=== PATIENT | female | born 1955 | race African-American/Black ===

== ENCOUNTER 2016-10-18 07:51 | Emergency (ER) | payer MEDICAID ==
[~2016-10-18] VITALS: Ht 165.1 cm; Wt 90.0 kg
[~2016-10-18 07:51] MED LIST: AMLO10TA80 PO; CALC-50 PO; DIPH50CA47 PO; FLUO-124 PO; IBUP-1510 PO; OMEP20CA10 PO; TRAZ-132 PO; TRIA1CAP2 PO; ZIPR80CA2 PO
[2016-10-18] MEDS ORDERED: IBUPROFEN 400MG TABLET PO ONE (08:15)
[2016-10-18 10:00] VITALS: BP 142/76
== END 2016-10-18 11:20 | disposition home or self-care (01) ==
LOC: ER 08:04
DX: M25.561 Pain in right knee (principal); M25.562 Pain in left knee; E05.90 Thyrotoxicosis, unspecified without thyrotoxic crisis or storm; J44.9 Chronic obstructive pulmonary disease, unspecified; I10 Essential (primary) hypertension; F03.90 Unspecified dementia, unspecified severity, without behavioral disturbance, psychotic disturbance, mood disturbance, and anxiety; E11.9 Type 2 diabetes mellitus without complications; Z88.0 Allergy status to penicillin; Z90.49 Acquired absence of other specified parts of digestive tract; Z90.710 Acquired absence of both cervix and uterus
CPT/HCPCS: 99283

== ENCOUNTER 2020-11-08 20:33 | Emergency (ER) | payer MEDICAID ==
[~2020-11-08] VITALS: Ht 157.5 cm; Wt 100.0 kg
[~2020-11-08 20:33] MED LIST changes: -FLUO-124 PO; +FLUO20CA39 PO; -IBUP-1510 PO; +IBUP-2030 PO; -OMEP20CA10 PO; +OMEP20CA14 PO; -TRAZ-132 PO; +TRAZ-252 PO
[2020-11-08] MEDS ORDERED: IPRATROPIUM BROMIDE (0.02%) 0.5MG/2.5ML NEB HHN STA (20:49)
[2020-11-08] MEDS ORDERED: ALBUTEROL (0.083%) 2.5MG/3ML NEB HHN STA (20:49)
[2020-11-08] MEDS ORDERED: METHYLPREDNISOLONE SOD SUCC 125 MG/2 ML VIAL IV STA (20:49)
[2020-11-08 21:32] LABS: BASOPHILS % 1.1 % (0.0-2.0); EOSINOPHILS % 1.5 % (0.0-5.0); HEMATOCRIT. 39.6 % (36.0-48.0); HEMOGLOBIN. 13.7 g/dL (12.0-16.0); MEAN CORPUSCULAR HEMOGLOBIN 32.6 pg (28.0-32.0); MONOCYTES % 8.2 % (2.0-8.0); NEUTROPHILS % 58.2 % (40.0-76.0); RED BLOOD CELL COUNT 4.22 mill/uL (4.2-5.4); RED CELL DISTRIBUTION WIDTH 14.4 % (11.6-14.6)
[2020-11-08 21:37] LABS: CHLORIDE 106 mEq/L (98-107)
[2020-11-08 21:56] LABS: MEAN PLATELET VOLUME 9.3 fl (7.4-10.4); PLATELET 239 x1000/uL (130-400)
[2020-11-08] MEDS ORDERED: ZIPRASIDONE HCL 80MG CAPSULE PO ONE (22:00)
[2020-11-08] MEDS ORDERED: ZIPRASIDONE HCL 40MG CAPSULE PO NR (22:15)
[2020-11-08 23:40] VITALS: BP 147/84
== END 2020-11-08 23:53 | disposition home or self-care (01) ==
LOC: ER 20:33
DX: R06.02 Shortness of breath (principal); F41.9 Anxiety disorder, unspecified; R60.0 Localized edema; I10 Essential (primary) hypertension; J44.9 Chronic obstructive pulmonary disease, unspecified; E11.9 Type 2 diabetes mellitus without complications; E03.9 Hypothyroidism, unspecified; Z99.81 Dependence on supplemental oxygen; F17.210 Nicotine dependence, cigarettes, uncomplicated
CPT/HCPCS: 36415; 71045; 80053; 83880; 84484; 85025; 93971; 94640; 96374; 99285; J2930; Z7610

== ENCOUNTER 2021-02-04 09:10 | Emergency (ER) | payer MEDICAID ==
[~2021-02-04] VITALS: Ht 172.7 cm; Wt 82.0 kg
[2021-02-04] MEDS ORDERED: PREDNISONE 20MG TABLET PO STA (09:28)
[2021-02-04] MEDS ORDERED: ALBUTEROL (0.083%) 2.5MG/3ML NEB HHN STA (09:28)
[2021-02-04] MEDS ORDERED: IPRATROPIUM BROMIDE (0.02%) 0.5MG/2.5ML NEB HHN STA (09:28)
[2021-02-04 10:58] LABS: HEMATOCRIT. 39.2 % (36.0-48.0); HEMOGLOBIN. 13.4 g/dL (12.0-16.0); MEAN CORPUSCULAR HEMOGLOBIN 31.3 pg (28.0-32.0); MEAN CORPUSCULAR VOLUME 91.8 fL (81.0-99.0); MEAN PLATELET VOLUME 7.9 fl (7.4-10.4); PLATELET 290 x1000/uL (130-400); RED BLOOD CELL COUNT 4.28 mill/uL (4.2-5.4); RED CELL DISTRIBUTION WIDTH 14.9 % (11.6-14.6)
[2021-02-04 11:01] LABS: CHLORIDE 109 mEq/L (98-107)
[2021-02-04] MEDS ORDERED: P50 MT (11:22)
[2021-02-04 11:30] VITALS: BP 141/74
[2021-02-04 12:32] LABS: PLATELET ESTIMATE NORMAL
== END 2021-02-04 11:42 | disposition home or self-care (01) ==
LOC: ER 09:20
DX: J44.1 Chronic obstructive pulmonary disease with (acute) exacerbation (principal); I11.0 Hypertensive heart disease with heart failure; I50.9 Heart failure, unspecified; E11.9 Type 2 diabetes mellitus without complications; F31.9 Bipolar disorder, unspecified; F17.210 Nicotine dependence, cigarettes, uncomplicated; Z71.6 Tobacco abuse counseling; F12.90 Cannabis use, unspecified, uncomplicated; Z88.0 Allergy status to penicillin; Z59.02 Unsheltered homelessness
CPT/HCPCS: 36415; 71045; 80053; 83880; 85025; 93005; 94640; 99285; 99406; J7512; Z7610

== ENCOUNTER 2021-03-14 00:16 | Emergency (ER) | payer MEDICARE, MEDICAID ==
[~2021-03-14] VITALS: Ht 172.7 cm; Wt 73.0 kg
[~2021-03-14 00:16] MED LIST changes: +P50 MT
[2021-03-14 00:19] VITALS: BP 141/87
== END 2021-03-14 01:55 | disposition left against medical advice (07) ==
LOC: ER 00:25
DX: R45.86 Emotional lability (principal); I11.0 Hypertensive heart disease with heart failure; I50.9 Heart failure, unspecified; F31.9 Bipolar disorder, unspecified; E11.9 Type 2 diabetes mellitus without complications; E05.90 Thyrotoxicosis, unspecified without thyrotoxic crisis or storm; J44.9 Chronic obstructive pulmonary disease, unspecified; J45.909 Unspecified asthma, uncomplicated; F12.90 Cannabis use, unspecified, uncomplicated; Z79.899 Other long term (current) drug therapy; Z88.0 Allergy status to penicillin
CPT/HCPCS: 99283

== ENCOUNTER 2021-05-22 18:46 | Inpatient (IN) | payer MEDICARE, OTHER ==
[~2021-05-22] VITALS: Ht 175.3 cm; Wt 113.4 kg
[2021-05-22] MEDS ORDERED: ACETAMINOPHEN 325MG TABLET PO NR (19:15)
[2021-05-22] MEDS ORDERED: ALBUTEROL 6.7GM HFA INHALER ORI NR (19:15)
[2021-05-22] MEDS ORDERED: LORAZEPAM 0.5MG TABLET PO NR (19:30)
[2021-05-22 20:44] LABS: CHLORIDE 111 mEq/L (98-107)
[2021-05-22 20:48] LABS: ETHANOL BLOOD < 10 mg/dL
[2021-05-22 21:17] LABS: HEMATOCRIT. 34.9 % (36.0-48.0); HEMOGLOBIN. 11.8 g/dL (12.0-16.0); MEAN CORPUSCULAR HEMOGLOBIN 31.4 pg (28.0-32.0); MEAN CORPUSCULAR VOLUME 92.5 fL (81.0-99.0); MEAN PLATELET VOLUME 6.7 fl (7.4-10.4); PLATELET 379 x1000/uL (130-400); RED BLOOD CELL COUNT 3.77 mill/uL (4.2-5.4); RED CELL DISTRIBUTION WIDTH 16.3 % (11.6-14.6)
[2021-05-22 21:42] LABS: PLATELET ESTIMATE NORMAL
[2021-05-22 22:56] LABS: *AMPHETAMINES SCREEN URINE NEGATIVE (NEGATIVE); *BARBITURATES SCREEN URINE NEGATIVE (NEGATIVE); *BENZODIAZEPINES SCREEN URINE NEGATIVE (NEGATIVE); *COCAINE SCREEN URINE PRESUMTIVE POSITIVE (NEGATIVE); CANNABINOID URINE SCREEN NEGATIVE (NEGATIVE); OPIATES URINE SCREEN NEGATIVE (NEGATIVE)
[2021-05-22 22:57] LABS: METHADONE URINE SCREEN NEGATIVE (NEGATIVE)
[2021-05-22] MEDS ORDERED: AZTREONAM 1 G in DEXTROSE 5% WATER 50 ML IV SCH (23:00)
[2021-05-22 23:08] LABS: PHENCYCLIDINE URINE SCREEN NEGATIVE (NEGATIVE)
[2021-05-23] MEDS ORDERED: HYDRALAZINE 20MG/ML VIAL IV PRN (08:45)
[2021-05-23] MEDS ORDERED: ONDANSETRON HCL 4MG/2ML INJ IV PRN (08:45)
[2021-05-23] MEDS ORDERED: LORAZEPAM 2MG/ML CPJ IV PRN (08:45)
[2021-05-23] MEDS ORDERED: GUAIFENESIN 200MG/10ML SUGAR FREE UDC PO PRN (08:45)
[2021-05-23] MEDS ORDERED: IPRATROPIUM/ALBUTEROL 0.5-3(2.5)MG/3ML NEB HHN PRN (08:45)
[2021-05-23] MEDS ORDERED: DIPHENHYDRAMINE 50MG/ML VIAL IV PRN (08:45)
[2021-05-23] MEDS: ENOXAPARIN 40MG/0.4ML SYR SUBCUT SCH (09:00)
[2021-05-23] MEDS ORDERED: NALOXONE HCL 0.4MG/ML VIAL IV PRN (12:00)
[2021-05-23] MEDS: HYDROCODONE/ACETAMINOPHEN 5/325MG TABLET PO PRN (12:02)
[2021-05-23] MEDS: LEVOFLOXACIN 500MG PREMIX 100 ML IV SCH (13:46)
[2021-05-23] MEDS: SODIUM CHLORIDE 0.9% INJ 3ML FLUSH IVF SCH ×2 (14:23→22:21)
[2021-05-23 15:16] LABS: CREATINE KINASE 194 IU/L (26-192)
[2021-05-23 15:31] LABS: T4 FREE 0.8 ng/dL (0.76-1.46)
[2021-05-23] MEDS: MAGNESIUM/ALUMINUM HYDROXIDE/SIMETHICONE 30ML UDC PO PRN (17:22)
[2021-05-23 22:10] VITALS: BP 160/102
[2021-05-23] MEDS: CLONIDINE 0.1MG TABLET PO PRN (23:10)
[2021-05-23] MEDS: DOCUSATE SODIUM 100MG CAPSULE PO PRN (23:28)
[2021-05-24] VITALS (7 sets, daily range): BP systolic 110–176; BP diastolic 72–97
[2021-05-24] MEDS: SODIUM CHLORIDE 0.9% INJ 3ML FLUSH IVF SCH ×2 (05:37→17:39)
[2021-05-24 08:40] LABS: CHLORIDE 107 mEq/L (98-107)
[2021-05-24 08:44] LABS: HEMATOCRIT. 36.3 % (36.0-48.0); HEMOGLOBIN. 12.5 g/dL (12.0-16.0); MEAN CORPUSCULAR HEMOGLOBIN 32.5 pg (28.0-32.0); MEAN CORPUSCULAR VOLUME 93.9 fL (81.0-99.0); MEAN PLATELET VOLUME 7.5 fl (7.4-10.4); PLATELET 313 x1000/uL (130-400); RED BLOOD CELL COUNT 3.86 mill/uL (4.2-5.4); RED CELL DISTRIBUTION WIDTH 16.1 % (11.6-14.6)
[2021-05-24 08:49] LABS: CREATINE KINASE 158 IU/L (26-192)
[2021-05-24] MEDS: ENOXAPARIN 40MG/0.4ML SYR SUBCUT SCH (08:49)
[2021-05-24 08:52] LABS: CREATINE KINASE MB FRACTION 1.4 ng/mL (0.5-3.6)
[2021-05-24 14:00] LABS: PLATELET ESTIMATE NORMAL
[2021-05-24] MEDS: ACETAMINOPHEN 325MG TABLET PO PRN (15:39)
[2021-05-24] MEDS: DOCUSATE SODIUM 100MG CAPSULE PO PRN (15:39)
[2021-05-24] MEDS: NYSTATIN 100,000 UNITS/ML 5ML UDC SSW SCH (17:39)
[2021-05-24] MEDS: LEVOFLOXACIN 500MG PREMIX 100 ML IV SCH (17:39)
[2021-05-24] MEDS: ATORVASTATIN CALCIUM 20MG TABLET PO SCH (20:55)
[2021-05-25] VITALS: BP 121/80
[2021-05-25] MEDS: NYSTATIN 100,000 UNITS/ML 5ML UDC SSW SCH ×4 (00:11→17:29)
[2021-05-25] MEDS: SODIUM CHLORIDE 0.9% INJ 3ML FLUSH IVF SCH ×3 (00:12→22:00)
[2021-05-25 03:31] VITALS: BP 144/92
[2021-05-25 08:00] VITALS: BP 160/95
[2021-05-25 08:18] LABS: BASOPHILS % 1.1 % (0.0-2.0); HEMATOCRIT. 37.7 % (36.0-48.0); HEMOGLOBIN. 12.6 g/dL (12.0-16.0); LYMPHOCYTES % 22.9 % (20.0-50.0); MEAN CORPUSCULAR HEMOGLOBIN 30.9 pg (28.0-32.0); MEAN CORPUSCULAR VOLUME 92.6 fL (81.0-99.0); MEAN PLATELET VOLUME 7.2 fl (7.4-10.4); MONOCYTES % 12.4 % (2.0-8.0); NEUTROPHILS % 62.6 % (40.0-76.0); PLATELET 310 x1000/uL (130-400); RED BLOOD CELL COUNT 4.07 mill/uL (4.2-5.4); RED CELL DISTRIBUTION WIDTH 15.9 % (11.6-14.6)
[2021-05-25 08:42] LABS: CHLORIDE 106 mEq/L (98-107)
[2021-05-25] MEDS: CLONIDINE 0.1MG TABLET PO PRN (09:29)
[2021-05-25] MEDS: ENOXAPARIN 30MG/0.3ML SYR SUBCUT SCH ×2 (09:30→20:38)
[2021-05-25] MEDS: LEVOFLOXACIN 500MG PREMIX 100 ML IV SCH (11:45)
[2021-05-25 12:00] VITALS: BP 127/80
[2021-05-25 16:00] VITALS: BP 122/86
[2021-05-25] MEDS: ACETAMINOPHEN 325MG TABLET PO PRN (17:29)
[2021-05-25] MEDS: DOCUSATE SODIUM 100MG CAPSULE PO PRN (17:29)
[2021-05-25] MEDS: MAGNESIUM/ALUMINUM HYDROXIDE/SIMETHICONE 30ML UDC PO PRN (20:34)
[2021-05-25] MEDS: ATORVASTATIN CALCIUM 20MG TABLET PO SCH (20:34)
[2021-05-26] VITALS: BP 103/52
[2021-05-26] MEDS: NYSTATIN 100,000 UNITS/ML 5ML UDC SSW SCH ×4 (00:26→18:39)
[2021-05-26 04:00] VITALS: BP 138/111
[2021-05-26] MEDS: SODIUM CHLORIDE 0.9% INJ 3ML FLUSH IVF SCH ×4 (06:00→21:36)
[2021-05-26 08:00] VITALS: BP 128/102
[2021-05-26] MEDS: ENOXAPARIN 30MG/0.3ML SYR SUBCUT SCH ×2 (09:02→21:36)
[2021-05-26] MEDS: HYDROCODONE/ACETAMINOPHEN 5/325MG TABLET PO PRN (09:08)
[2021-05-26 12:00] VITALS: BP 157/91
[2021-05-26] MEDS: LEVOFLOXACIN 500MG PREMIX 100 ML IV SCH (12:01)
[2021-05-26 16:00] VITALS: BP 130/76
[2021-05-26] MEDS: DOCUSATE SODIUM 100MG CAPSULE PO PRN (16:30)
[2021-05-26 20:00] VITALS: BP 100/78
[2021-05-26] MEDS: ATORVASTATIN CALCIUM 20MG TABLET PO SCH (21:36)
[2021-05-27] VITALS: BP 100/64
[2021-05-27 04:00] VITALS: BP 127/73
[2021-05-27] MEDS: NYSTATIN 100,000 UNITS/ML 5ML UDC SSW SCH ×3 (05:14→13:19)
[2021-05-27] MEDS: SODIUM CHLORIDE 0.9% INJ 3ML FLUSH IVF SCH ×2 (05:14→13:19)
[2021-05-27] MEDS: HYDROCODONE/ACETAMINOPHEN 5/325MG TABLET PO PRN (05:17)
[2021-05-27 08:00] VITALS: BP 124/81
[2021-05-27] MEDS ORDERED: NITROGLYCERIN SPRAY/4.9GM CAN TL SCH (08:00)
[2021-05-27] MEDS: ENOXAPARIN 30MG/0.3ML SYR SUBCUT SCH (08:57)
[2021-05-27] MEDS ORDERED: DILTIAZEM HCL 30MG TABLET PO NR (09:00)
[2021-05-27] MEDS: LEVOFLOXACIN 500MG PREMIX 100 ML IV SCH (10:48)
[2021-05-27 12:00] VITALS: BP 144/76
[2021-05-27 13:46] VITALS: BP 144/76
== END 2021-05-27 14:25 | disposition home or self-care (01) | DRG 133 ==
LOC: ER 18:46 → MICUSO 23:41 → EDBEDREQ 05-23 20:21 → 8WST 05-23 22:44
PROVIDERS: ADMIT Internal Medicine; ATTEND Internal Medicine
DX: J96.00 Acute respiratory failure, unspecified whether with hypoxia or hypercapnia (principal); B37.0 Candidal stomatitis; I50.9 Heart failure, unspecified; I11.0 Hypertensive heart disease with heart failure; I25.10 Atherosclerotic heart disease of native coronary artery without angina pectoris; F14.10 Cocaine abuse, uncomplicated; E78.5 Hyperlipidemia, unspecified; Z20.822 Contact with and (suspected) exposure to COVID-19; F17.210 Nicotine dependence, cigarettes, uncomplicated; F31.9 Bipolar disorder, unspecified; E05.90 Thyrotoxicosis, unspecified without thyrotoxic crisis or storm; J44.9 Chronic obstructive pulmonary disease, unspecified; Z86.16 Personal history of COVID-19; Z88.0 Allergy status to penicillin; Z79.899 Other long term (current) drug therapy
CPT/HCPCS: 36415; 71045; 80048; 80053; 80061; 80305; 80320; 82550; 82553; 83036; 83605; 83880; 84439; 84443; 84484; 85025; 85379; 87426; 87804; 93005; 93306; 93970; 99285; C1893; J0360; J1650; J1956; J2060; J3490; J7040; J7060; G0480

== ENCOUNTER 2021-06-23 21:27 | Inpatient (IN) | payer MEDICARE, OTHER ==
[~2021-06-23] VITALS: Ht 157.5 cm; Wt 91.0 kg
[2021-06-23] MEDS ORDERED: ALBUTEROL (0.083%) 2.5MG/3ML NEB HHN STA (21:34)
[2021-06-23] MEDS ORDERED: IPRATROPIUM BROMIDE (0.02%) 0.5MG/2.5ML NEB HHN STA (21:34)
[2021-06-23] MEDS ORDERED: METHYLPREDNISOLONE SOD SUCC 125 MG/2 ML VIAL IV STA (21:34)
[2021-06-23 22:10] LABS: BASOPHILS % 0.7 % (0.0-2.0); EOSINOPHILS % 1.9 % (0.0-5.0); HEMATOCRIT. 37.3 % (36.0-48.0); HEMOGLOBIN. 12.9 g/dL (12.0-16.0); MEAN CORPUSCULAR HEMOGLOBIN 31.7 pg (28.0-32.0); MEAN CORPUSCULAR VOLUME 91.6 fL (81.0-99.0); MEAN PLATELET VOLUME 7.2 fl (7.4-10.4); MONOCYTES % 7.7 % (2.0-8.0); NEUTROPHILS % 69.7 % (40.0-76.0); PLATELET 315 x1000/uL (130-400); RED BLOOD CELL COUNT 4.07 mill/uL (4.2-5.4); RED CELL DISTRIBUTION WIDTH 16.4 % (11.6-14.6)
[2021-06-23 22:24] LABS: CHLORIDE 109 mEq/L (98-107)
[2021-06-24] MEDS ORDERED: IPRATROPIUM/ALBUTEROL 0.5-3(2.5)MG/3ML NEB NEB PRN (00:45)
[2021-06-24] MEDS ORDERED: IPRATROPIUM/ALBUTEROL 0.5-3(2.5)MG/3ML NEB NEB SCH (00:45)
[2021-06-24] MEDS ORDERED: HYDROCODONE/ACETAMINOPHEN 5/325MG TABLET PO PRN (00:45)
[2021-06-24] MEDS ORDERED: ONDANSETRON HCL 4MG/2ML INJ IV PRN (00:45)
[2021-06-24] MEDS ORDERED: ACETAMINOPHEN 325MG TABLET PO PRN ×2 (00:45)
[2021-06-24] MEDS ORDERED: MAGNESIUM/ALUMINUM HYDROXIDE/SIMETHICONE 30ML UDC PO PRN (00:45)
[2021-06-24] MEDS ORDERED: NALOXONE HCL 0.4MG/ML VIAL IV PRN (01:15)
[2021-06-24] MEDS: CLONIDINE 0.1MG TABLET PO PRN ×2 (02:31→10:13)
[2021-06-24 04:27] LABS: HEMATOCRIT. 37.3 % (36.0-48.0); HEMOGLOBIN. 12.7 g/dL (12.0-16.0); MEAN CORPUSCULAR HEMOGLOBIN 31.3 pg (28.0-32.0); MEAN CORPUSCULAR VOLUME 91.7 fL (81.0-99.0); MEAN PLATELET VOLUME 7.4 fl (7.4-10.4); PLATELET 304 x1000/uL (130-400); RED BLOOD CELL COUNT 4.07 mill/uL (4.2-5.4); RED CELL DISTRIBUTION WIDTH 16.4 % (11.6-14.6)
[2021-06-24 04:38] LABS: CHLORIDE 109 mEq/L (98-107)
[2021-06-24 04:43] LABS: PHOSPHORUS 3.6 mg/dL (2.5-4.9)
[2021-06-24] MEDS ORDERED: TUSSL MT (08:14)
[2021-06-24] MEDS ORDERED: ALBU18HF2 IH (08:14)
[2021-06-24] MEDS ORDERED: GUAIFENESIN-DM 200MG-20MG/10ML UDC PO PRN (08:15)
[2021-06-24] MEDS ORDERED: METHYLPREDNISOLONE SOD SUCC 40 MG/ML VIAL IV SCH (08:15)
[2021-06-24] MEDS ORDERED: ENOXAPARIN 30MG/0.3ML SYR SUBCUT SCH (09:00)
[2021-06-24 09:32] LABS: BG BASE EXCESS 0.2 mmol/L (-2.0-2.0); BG CARBOXYHEMOGLOBIN 0.7 % (0.5-1.5); BG DEOXYHEMOGLOBIN 1.2 % (0.0-5.0); BG FRACTION INSPIRED OXYGEN 50; BG HCO3 ACT 24.9 mmol/L (22.0-26.0); BG METHEMOGLOBIN 0.3 % (0.0-1.5); BG OXYGEN SATURATION 98.8 % (92.0-98.5); BG OXYHEMOGLOBIN 97.8 % (94.0-97.0); BG PCO2 40.8 mmHg (35.0-45.0); BG PH 7.404 (7.350-7.450); BG PO2 138.2 mmHg (75.0-100.0); BG SAMPLE SITE RIGHT RADIAL; BG TOTAL HEMOGLOBIN 13.7 g/dL (12.0-18.0); BG VENT MODE MASK - BIPAP
[2021-06-24] MEDS ORDERED: ALBU6.7H9 INH (10:24)
[2021-06-24] MEDS ORDERED: P20 PO (10:24)
[2021-06-24 11:20] LABS: PLATELET ESTIMATE NORMAL
[2021-06-24 12:51] VITALS: BP 142/62
== END 2021-06-24 12:53 | disposition home or self-care (01) | DRG 140 ==
LOC: ER 21:27 → MICUSO 06-24 00:15 → EDBEDREQ 06-24 00:24 → EDBEDREQTM 06-24 00:24 → EDBEDREQDT 06-24 00:24 → SUPCPDRO 06-24 00:29 → MICUSO 06-24 12:53 → CANBEDREQ 06-25 07:56
PROVIDERS: ADMIT Internal Medicine; ATTEND Internal Medicine
PROC: 5A09357 Assistance with Respiratory Ventilation, Less than 24 Consecutive Hours, Continuous Positive Airway Pressure (ICD-10-PCS; principal; 2021-06-23)
DX: J44.1 Chronic obstructive pulmonary disease with (acute) exacerbation (principal); J96.00 Acute respiratory failure, unspecified whether with hypoxia or hypercapnia; I50.9 Heart failure, unspecified; Z99.81 Dependence on supplemental oxygen; I11.0 Hypertensive heart disease with heart failure; E11.9 Type 2 diabetes mellitus without complications; E66.9 Obesity, unspecified; F14.10 Cocaine abuse, uncomplicated; E05.90 Thyrotoxicosis, unspecified without thyrotoxic crisis or storm; Z60.2 Problems related to living alone; Z20.822 Contact with and (suspected) exposure to COVID-19; G35 Multiple sclerosis; F17.210 Nicotine dependence, cigarettes, uncomplicated; F31.9 Bipolar disorder, unspecified; I25.10 Atherosclerotic heart disease of native coronary artery without angina pectoris; Z90.710 Acquired absence of both cervix and uterus; Z86.16 Personal history of COVID-19; Y92.89 Other specified places as the place of occurrence of the external cause; Z88.0 Allergy status to penicillin; Z79.899 Other long term (current) drug therapy; Z90.49 Acquired absence of other specified parts of digestive tract; Z68.36 Body mass index [BMI] 36.0-36.9, adult
CPT/HCPCS: 36415; 36600; 71045; 80048; 80053; 82375; 82805; 82962; 83735; 83880; 84100; 84484; 85025; 87426; 93005; 99291; J1650; J2920; J2930

== ENCOUNTER 2021-07-02 18:23 | Emergency (ER) | payer MEDICARE, OTHER ==
[~2021-07-02] VITALS: Ht 157.5 cm; Wt 82.0 kg
[~2021-07-02 18:23] MED LIST changes: +ALBU6.7H9 INH; +P20 PO; -P50 MT
[2021-07-02 18:53] LABS: HEMATOCRIT. 36.1 % (36.0-48.0); HEMOGLOBIN. 12.7 g/dL (12.0-16.0); MEAN CORPUSCULAR HEMOGLOBIN 32.1 pg (28.0-32.0); MEAN CORPUSCULAR VOLUME 91.2 fL (81.0-99.0); MEAN PLATELET VOLUME 6.9 fl (7.4-10.4); PLATELET 354 x1000/uL (130-400); RED BLOOD CELL COUNT 3.95 mill/uL (4.2-5.4); RED CELL DISTRIBUTION WIDTH 16.2 % (11.6-14.6)
[2021-07-02 18:59] LABS: CHLORIDE 109 mEq/L (98-107)
[2021-07-02] MEDS ORDERED: METHYLPREDNISOLONE SOD SUCC 125 MG/2 ML VIAL IV STA (19:19)
[2021-07-02] MEDS ORDERED: ALBUTEROL (0.083%) 2.5MG/3ML NEB HHN STA (19:19)
[2021-07-02] MEDS ORDERED: IPRATROPIUM BROMIDE (0.02%) 0.5MG/2.5ML NEB HHN STA (19:19)
[2021-07-02] MEDS ORDERED: MAGNESIUM 2 G PREMIX 50 ML IV ONE (19:30)
[2021-07-02] MEDS ORDERED: POTASSIUM CHLORIDE 20MEQ TABLET SR PO ONE (20:00)
[2021-07-02 20:12] LABS: PLATELET ESTIMATE NORMAL
[2021-07-02 22:25] LABS: BG BASE EXCESS 0.5 mmol/L (-2.0-2.0); BG DEOXYHEMOGLOBIN 10.9 % (0.0-5.0); BG FRACTION INSPIRED OXYGEN 28; BG HCO3 ACT 25.3 mmol/L (22.0-26.0); BG METHEMOGLOBIN 0.1 % (0.0-1.5); BG OXYGEN SATURATION 88.5 % (92.0-98.5); BG PCO2 41.2 mmHg (35.0-45.0); BG PH 7.406 (7.350-7.450); BG PO2 54.3 mmHg (75.0-100.0); BG SAMPLE SITE LEFT BRACHIAL; BG TOTAL HEMOGLOBIN 13.7 g/dL (12.0-18.0); BG VENT MODE NASAL CANNULA
[2021-07-03 00:11] VITALS: BP 146/76
== END 2021-07-03 00:25 | disposition short-term general hospital (02) ==
LOC: ER 18:23
DX: J44.1 Chronic obstructive pulmonary disease with (acute) exacerbation (principal); J96.01 Acute respiratory failure with hypoxia; I11.0 Hypertensive heart disease with heart failure; I50.9 Heart failure, unspecified; E05.90 Thyrotoxicosis, unspecified without thyrotoxic crisis or storm; E11.9 Type 2 diabetes mellitus without complications; F31.9 Bipolar disorder, unspecified; F17.210 Nicotine dependence, cigarettes, uncomplicated; Z20.822 Contact with and (suspected) exposure to COVID-19; Z90.49 Acquired absence of other specified parts of digestive tract; Z90.710 Acquired absence of both cervix and uterus; Z88.0 Allergy status to penicillin
CPT/HCPCS: 36415; 36600; 71045; 80053; 82375; 82805; 83880; 84484; 85025; 87426; 93005; 94644; 96365; 96375; 99291; J2930; J3475

== ENCOUNTER 2021-08-19 10:36 | Emergency (ER) | payer MEDICARE, OTHER ==
[~2021-08-19] VITALS: Ht 167.6 cm; Wt 108.0 kg
[2021-08-19] MEDS ORDERED: HYDROCODONE/ACETAMINOPHEN 10/325MG TABLET PO ONE (11:00)
[2021-08-19] MEDS ORDERED: ACET650T37 MT (14:00)
[2021-08-19] MEDS ORDERED: HYDROCODONE/ACETAMINOPHEN 5/325MG TABLET PO ONE (14:15)
[2021-08-19] MEDS ORDERED: LIDOCAINE 5% PATCH TOP SCH (14:15)
[2021-08-19] MEDS ORDERED: LIDO700A30 TP (14:20)
[2021-08-19 14:35] VITALS: BP 166/98
== END 2021-08-19 14:38 | disposition home or self-care (01) ==
LOC: ER 10:36
DX: S20.212A Contusion of left front wall of thorax, initial encounter (principal); W01.0XXA Fall on same level from slipping, tripping and stumbling without subsequent striking against object, initial encounter; Y93.89 Activity, other specified; Y92.89 Other specified places as the place of occurrence of the external cause
CPT/HCPCS: 71250; 74176; 99284

== ENCOUNTER 2021-11-22 20:15 | Emergency (ER) | payer MEDICARE, OTHER ==
[~2021-11-22] VITALS: Ht 172.7 cm; Wt 109.0 kg
[~2021-11-22 20:15] MED LIST changes: +ACET-3163 MT; +DIPH-892 PO; -DIPH50CA47 PO; +LIDO700A30 TP
[2021-11-22 20:23] VITALS: BP 161/82
== END 2021-11-23 07:09 | disposition left against medical advice (07) ==
LOC: ER 20:15
DX: Z53.21 Procedure and treatment not carried out due to patient leaving prior to being seen by health care provider (principal)

== ENCOUNTER 2022-01-17 13:29 | Emergency (ER) | payer MEDICARE, MEDICAID ==
[~2022-01-17] VITALS: Ht 162.6 cm; Wt 70.0 kg
[2022-01-17] MEDS ORDERED: LORAZEPAM 2MG/ML CPJ IV ONE (14:00)
[2022-01-17] MEDS ORDERED: ALBUTEROL (0.083%) 2.5MG/3ML NEB HHN ONE (14:15)
[2022-01-17] MEDS ORDERED: ASPIRIN 325MG EC TABLET PO ONE (14:15)
[2022-01-17] MEDS ORDERED: METHYLPREDNISOLONE SOD SUCC 125 MG/2 ML VIAL IV ONE (14:15)
[2022-01-17 16:00] VITALS: BP 146/78
[2022-01-17] MEDS ORDERED: PREDNISONE 20MG TABLET PO ONE (16:00)
[2022-01-17 16:12] LABS: HEMATOCRIT. 38.5 % (36.0-48.0); HEMOGLOBIN. 13.2 g/dL (12.0-16.0); MEAN CORPUSCULAR HEMOGLOBIN 32.4 pg (28.0-32.0); MEAN CORPUSCULAR VOLUME 94.2 fL (81.0-99.0); MEAN PLATELET VOLUME 6.9 fl (7.4-10.4); PLATELET 332 x1000/uL (130-400); RED BLOOD CELL COUNT 4.08 mill/uL (4.2-5.4); RED CELL DISTRIBUTION WIDTH 14.5 % (11.6-14.6)
[2022-01-17 16:30] LABS: CHLORIDE 109 mEq/L (98-107)
[2022-01-17 16:40] LABS: ETHANOL BLOOD < 10 mg/dL
[2022-01-17] MEDS ORDERED: ASPIRIN 325MG EC TABLET PO NR (16:45)
[2022-01-17 16:58] LABS: *AMPHETAMINES SCREEN URINE NEGATIVE (NEGATIVE); *BARBITURATES SCREEN URINE NEGATIVE (NEGATIVE); *BENZODIAZEPINES SCREEN URINE NEGATIVE (NEGATIVE); *COCAINE SCREEN URINE PRESUMTIVE POSITIVE (NEGATIVE); CANNABINOID URINE SCREEN PRESUMTIVE POSITIVE (NEGATIVE); METHADONE URINE SCREEN NEGATIVE (NEGATIVE); OPIATES URINE SCREEN NEGATIVE (NEGATIVE); PHENCYCLIDINE URINE SCREEN NEGATIVE (NEGATIVE)
[2022-01-17] MEDS ORDERED: ALBUTEROL (0.083%) 2.5MG/3ML NEB ONE (17:00)
[2022-01-17] MEDS ORDERED: POTASSIUM CHLORIDE 20MEQ TABLET SR PO ONE (17:00)
[2022-01-17 17:08] LABS: PLATELET ESTIMATE NORMAL
[2022-01-17] MEDS ORDERED: POTA-204 MT (17:31)
[2022-01-17] MEDS ORDERED: ALBU05 NEB (17:31)
[2022-01-17] MEDS ORDERED: PRED10TA MT (17:31)
== END 2022-01-17 17:45 | disposition home or self-care (01) ==
LOC: ER 13:29
DX: J44.1 Chronic obstructive pulmonary disease with (acute) exacerbation (principal); F14.90 Cocaine use, unspecified, uncomplicated; E87.6 Hypokalemia; E11.9 Type 2 diabetes mellitus without complications; I11.0 Hypertensive heart disease with heart failure; I50.9 Heart failure, unspecified; J45.909 Unspecified asthma, uncomplicated; Z88.0 Allergy status to penicillin; Z79.899 Other long term (current) drug therapy; Z98.890 Other specified postprocedural states; Z86.59 Personal history of other mental and behavioral disorders; Z90.49 Acquired absence of other specified parts of digestive tract
CPT/HCPCS: 36415; 71045; 80053; 80305; 80320; 83605; 83690; 83880; 84484; 85025; 93005; 94640; 99285; J7512; Z7610; G0480

== ENCOUNTER 2024-03-20 13:30 | Emergency (ER) | payer MEDICARE, MEDICAID ==
[~2024-03-20] VITALS: Ht 167.6 cm; Wt 77.0 kg
[~2024-03-20 13:30] MED LIST changes: +ALBU05 NEB; +ALBU6.7H3 INH; -ALBU6.7H9 INH; -DIPH-892 PO; +DIPH-954 PO; +FLUO-413 PO; -FLUO20CA39 PO; +POTA-204 MT; +PRED10TA MT
[2024-03-20] MEDS: IPRATROPIUM/ALBUTEROL 0.5-3(2.5)MG/3ML NEB HHN ONE (14:30)
[2024-03-20 14:40] VITALS: PULSE 78; RESP 24; O2SAT 98
[2024-03-20 15:08] LABS: BASOPHILS % 0.3 % (0.0-2.0); HEMATOCRIT. 36.7 % (36.0-48.0); HEMOGLOBIN. 12.2 g/dL (12.0-16.0); LYMPHOCYTES % 13.6 % (20.0-50.0); MEAN CORPUSCULAR HEMOGLOBIN 31.3 pg (28.0-32.0); MEAN CORPUSCULAR HGB CONC 33.2 g/dL (31.0-37.0); MEAN CORPUSCULAR VOLUME 94.3 fL (81.0-99.0); MEAN PLATELET VOLUME 7.3 fl (7.4-10.4); NEUTROPHILS % 75.1 % (40.0-76.0); PLATELET 247 x1000/uL (130-400); RED BLOOD CELL COUNT 3.89 mill/uL (4.2-5.4); RED CELL DISTRIBUTION WIDTH 14.3 % (11.6-14.6); WHITE BLOOD COUNT 4.5 x1000/uL (4.5-11.0)
[2024-03-20 15:14] LABS: CHLORIDE 108 mEq/L (98-107); POTASSIUM 3.6 mEq/L (3.5-5.1); SODIUM 140 mEq/L (136-145)
[2024-03-20 15:15] LABS: CALCIUM 8.6 mg/dL (8.7-10.4); CARBON DIOXIDE 28 mEq/L (21-32)
[2024-03-20 15:20] VITALS: TEMP 36.83628
[2024-03-20 15:20] LABS: CREATININE 0.8 mg/dL (0.6-1.0); GLUCOSE 107 mg/dL (70-105); UREA NITROGEN BLOOD 14 mg/dL (9-23)
[2024-03-20 15:22] LABS: TROPONIN I HIGH SENSITIVITY 8 ng/L (3.0-34)
[2024-03-20 15:31] LABS: INR 0.9; PARTIAL THROMBOPLASTIN TIME 25.4 sec (23.4-31.0); PROTHROMBIN TIME 10.5 sec (9.6-11.0)
[2024-03-20] MEDS: METHYLPREDNISOLONE SOD SUCC 125MG/2ML (ACT-O-VIAL) IV ONE (15:34)
[2024-03-20 16:51] LABS: TROPONIN I HIGH SENSITIVITY 7 ng/L (3.0-34)
[2024-03-20] MEDS ORDERED: P50 MT (17:22)
[2024-03-20] MEDS: ASPIRIN 81MG TABLET PO ONE (17:38)
[2024-03-20 17:48] VITALS: BP 117/63; PULSE 75; RESP 18; O2SAT 100
== END 2024-03-20 17:58 | disposition home or self-care (01) ==
LOC: ER 13:30
DX: J44.1 Chronic obstructive pulmonary disease with (acute) exacerbation (principal); R55 Syncope and collapse; E03.9 Hypothyroidism, unspecified; E11.9 Type 2 diabetes mellitus without complications; F17.200 Nicotine dependence, unspecified, uncomplicated; F31.9 Bipolar disorder, unspecified; I11.0 Hypertensive heart disease with heart failure; I50.9 Heart failure, unspecified; Z79.899 Other long term (current) drug therapy; Z90.49 Acquired absence of other specified parts of digestive tract; Z90.710 Acquired absence of both cervix and uterus; Z88.0 Allergy status to penicillin
CPT/HCPCS: 80048; 83880; 85025; 85610; 85730; 84484; 36415; 71045; 94640; 93005; 96374; 99285; Z7610 ×7; J2919